=== PATIENT | female | born 1980 | race Caucasian/White ===

== ENCOUNTER 2019-04-13 06:53 | Observation (INO) ==
--- NOTE | 2019-04-08 09:09 | Anesthesiology Consultation ---
Date of Service April 08, 2019 Assessment & Plan Chart Review Chart Review: Acceptable Risk for Surgery and Patient NOT seen in Pre Admission Testing Consults Requested none History Surgery Operation Date: 04/13/19 09:20 Proposed Procedures p Bilateral Reduction Mammoplasty - Doris Baltazar MD Height/Weight Height: 5 ft 1.5 in Weight: 87.543 kg Allergies Allergy/AdvReac Type Severity Reaction Status Date / Time No Known Allergies Allergy Verified 04/02/19 08:32 Medications Home Medications Medication Instructions Recorded Confirmed Last Taken oxycodone-acetaminophen [Endocet] 1 tab PO Q4H PRN 04/02/19 04/02/19 Unknown Past Medical History Medical History No known health problems Past Surgical History Surgical History History of section x 2 Social History Smoking Status: Never smoker Do You Dip or Chew Tobacco: No Hx Alcohol Use: No Hx Substance Use: No substance use type: does not use
[~2019-04-13 06:53] MED LIST: ACETAMINOPHEN 1000 MG/100 ML IV IV ONE; CEFAZOLIN 2000MG 2,000 MG/15 ML SYR IV SCH; LR 15ML/HR IV SCH
[2019-04-13 07:39] LABS: Basophils # (auto) 0.01 K/uL (0-0.2); Basophils % (auto) 0.2 %; Eosinophils # (auto) 0.09 K/uL (0-0.5); Eosinophils % (auto) 1.7 %; Hematocrit (blood only) 41.8 % (37-47); Hemoglobin 14.3 g/dL (12.0-16.0); Immature Granulocytes # (auto) 0.01 K/uL (0.00-0.02); Immature Granulocytes % (auto) 0.2 %; Lymphocytes # (auto) 2.49 K/uL (1.2-3.4); Lymphocytes % (auto) 45.7 %; Mean Corpuscular Hemoglobin 30.6 pg (25-34); Mean Corpuscular Volume 89.3 fL (80-100); Mean Platelet Volume 11.5 fL (7.4-10.4); Monocytes # (auto) 0.53 K/uL (0.11-0.59); Monocytes % (auto) 9.7 %; Neutrophils # (auto) 2.32 K/uL (1.4-6.5); Neutrophils % (auto) 42.5 %; Platelet Count 190 K/uL (130-400); RDW Coefficient of Variation 12.5 % (11.5-14.5); RDW Standard Deviation 39.8 fL (36.4-46.3); Red Blood Count 4.68 M/uL (4.2-5.4); White Blood Count 5.45 K/uL (4.8-10.8)
[2019-04-13 07:45] LABS: Mean Corpuscular Hgb Conc 34.2 g/dL (32-36)
[2019-04-13 07:54] LABS: BUN Creatinine Ratio 22.3 (10-20); Calcium 8.8 mg/dl (8.5-10.1); Creatinine Clr Calc Pharmacy 94.9 ml/min; Est GFR (African American) 106.9; Est GFR (Non-African American) 92.2; Potassium 4.1 mmol/L (3.5-5.1)
[2019-04-13 07:55] LABS: Partial Thromboplastin Ratio 0.9; Partial Thromboplastin Time 25.6 Seconds (21.0-31.0); Prothrombin Time 10.5 Seconds (9.0-12.0)
[2019-04-13] MEDS ORDERED: ROCURONIUM BROMIDE 10 MG/ML 5 ML VIAL ONE (08:11)
[2019-04-13] MEDS ORDERED: MIDAZOLAM HCL 1 MG/ML 2ML VIAL ONE (08:11)
[2019-04-13] MEDS ORDERED: DEXAMETHASONE SOD INJ 4 MG/ML VIAL ONE (08:11)
[2019-04-13] MEDS ORDERED: ONDANSETRON INJ 2 MG/ML 2 ML VIAL ONE (08:11)
[2019-04-13] MEDS ORDERED: fentaNYL citrate 100 MCG/2 ML VIAL ONE (08:11)
[2019-04-13] MEDS ORDERED: LIDOCAINE HCL 2% 2 ML VIAL/AMP(20MG/ML) INFIL ONE (08:11)
[2019-04-13] MEDS ORDERED: PROPOFOL IV EMULSION 10 MG/ML 20 ML VIAL IV ONE (08:11)
[2019-04-13] MEDS ORDERED: ePHEDrine sulfate 50 MG/ML AMP IV PRN (08:46)
[2019-04-13] MEDS ORDERED: ATROPINE SULFATE 0.1 MG/ML 10ML SYR IV PRN (08:46)
[2019-04-13] MEDS ORDERED: METOCLOPRAMIDE HCL INJ 5 MG/ML 2 ML VIAL IV PRN (08:46)
[2019-04-13] MEDS ORDERED: PROMETHAZINE HCL 12.5 MG in SODIUM CHLORIDE 0.9% 50 ML IV PRN ×2 (08:46→14:14)
[2019-04-13] MEDS ORDERED: HYDROmorphone INJ 2 MG/ML SYR/VIAL IV PRN (08:46)
[2019-04-13] MEDS ORDERED: ONDANSETRON INJ 2 MG/ML 2 ML VIAL IV PRN ×3 (08:46→14:16)
[2019-04-13] MEDS ORDERED: LIDOCAINE/EPINEPHRINE 1% 20 ML VIAL ONE (09:06)
[2019-04-13] MEDS ORDERED: BUPIVACAINE 0.25% 30 ML VIAL ONE (09:06)
--- NOTE | 2019-04-13 09:08 | History & Physical Bridge Note ---
Date of Service April 13, 2019 History & Physical Bridge Note I have examined the patient, reviewed the History & Physical and in the interval since the performance of the History & Physical I have noted the following changes of clinical significance: no changes noted
[2019-04-13] MEDS ORDERED: KETAMINE HCL INJ 50 MG/ML 10 ML VIAL ONE (09:33)
[2019-04-13] MEDS ORDERED: HYDROmorphone INJ 2 MG/ML SYR/VIAL ONE (09:33)
[2019-04-13] MEDS ORDERED: GLYCOPYRROLATE 0.2 MG/ML VIAL ONE (12:07)
[2019-04-13] MEDS ORDERED: NEOSTIGMINE METHYLSULFATE 5 MG/5 ML SYR ONE (12:07)
--- NOTE | 2019-04-13 12:53 | Post Operative Brief Note ---
PG Immediate Post Op with CF Date of Surgery April 13, 2019 Pre & Post Diagnosis Operation Date: 04/13/19 09:20 Pre-Op Diagnosis: Symptomatic Bilateral Macromastia Post-Op Diagnosis: Symptomatic Bilateral Macromastia I identified the patient and participated in the time-out.: Yes Procedure Operation Date: 04/13/19 09:20 Actual Procedures p Bilateral Breast Reduction (Bilateral) - Doris Baltazar MD Surgeon Doris Baltazar MD Parts Counter Associate Niki Berrios PA-C Estimated Blood Loss 50 Findings Consistent with Post-Op Diagnosis Specimens Specimen Description: Fresh Specimen A:) Left Breast Tissue 710 grams Fresh Specimen B:) Right Breast Tissue 644 grams Drains Ricardo-Perkins Drain (x2)
--- NOTE | 2019-04-13 12:58 | Operative Report ---
PG Post Operative Report Pre & Post Diagnosis Operation Date: 04/13/19 09:20 Pre-Op Diagnosis: Symptomatic Bilateral Macromastia Post-Op Diagnosis: Symptomatic Bilateral Macromastia I identified the patient and participated in the time-out.: Yes Procedure Operation Date: 04/13/19 09:20 Actual Procedures p Bilateral Breast Reduction (Bilateral) - Doris Baltazar MD Surgeon Doris Blatazar MD Title Specialist Niki Berrios PA-C Estimated Blood Loss 50 Findings Consistent with Post-Op Diagnosis Specimens left breast 710 grams to pathology right breast 644 grams to pathology Drains JPx2 Anesthesia Type General Complications none Indications back, neck and shoulder pain due to macromastia Description of Procedure The risks, benefits, and alternatives of the procedure were explained to the patient who agreed and signed consent. She was identified and marked in the preoperative holding area. She desired to be a C or D cup if possible, understood insurance required weight of 628 grams and that her left breast was larger than the right. She was brought to the operating room where she was positioned supine and placed under general anesthesia without incident. Surgical site was prepped and draped sterilely. A time-out procedure was performed. I began with the left side. Markings were reassessed and an 8 cm pedicle was marked. 1% lidocaine with epinephrine was used to anesthetize the planned incisions. A 42 mm cookie cutter was used to circumscribe the nipple-areolar complex. The previously marked 8 cm pedicle was incised using a 15 blade scalpel and deepithelized. I began with the medial dissection of the pedicle using electrocautery. Cautery was used to incise through dermis and breast parenchyma down to the chest wall, taking care not to undermine the pedicle during dissection. A similar procedure was undertaken on the lateral aspect of the pedicle again taking care not to undermine. Lastly, the pedicle was dissected out superiorly using electrocautery and this was carried down to the chest wall as well. I then began with excision of the medial breast tissue followed by lateral aspect of the breast tissue and surrounding keyhole incision. A 15 blade scalpel was used to make the inframammary fold incision and electrocautery was used to deepen the incision through dermis and breast parenchyma. Dissection was then carried superiorly to the level of the superior incision. Superior incision was then incised using a 15 blade scalpel and again dissected using electrocautery. This was undertaken laterally and then around the keyhole portion of the incision. Care was taken to leave some fat on the lateral pectoralis fascia in order to protect the T4 intercostal nerve. Hemostasis was achieved with electrocautery. The specimen was passed off in its entirety for weighing. Additional resection was undertaken from the superior flap in order to facilitate closure of the breast and to provide the best shape. The total resection weight of the left breast was 710 grams. The wound was irrigated with saline and hemostasis was achieved with electrocautery. 0.25% Marcaine plain was used to anesthetize the incisions as well as the pectoralis fascia. A 15 Moroccan Edgar drain was brought out through a separate stab incision. The nipple-areolar complex was brought into the keyhole using 2-0 Vicryl deep dermal suture. The wound was closed first in a lateral to mid breast direction and then medial to mid breast direction using 2-0 Vicryl deep dermal sutures. Vertical limb was also approximated using 2-0 Vicryl deep dermals and the nipple-areolar complex was inset using 2-0 Vicryl deep dermal sutures. Next, the superficial dermal layer was closed using 2-0 PDO running Quill suture along the inframammary fold and 3-0 PDS interrupted dermal sutures along the vertical limb and nipple- areolar complex. Lastly 3-0 Monocryl running subcuticular suture was placed. A similar procedure was undertaken on the right side with maximal excision weight of 644 grams. Breasts were symmetric and nipple-areolar complexes were viable bilaterally following wound closure. Dermabond Prineo was applied along the inframammary fold and vertical limb and Dermabond was placed around the nipple-areolar complex. Dry dressings and a surgical bra were placed. The patient was awakened and transferred to recovery room in satisfactory condition. Niki Berrios PA-C was present and scrubbed throughout the procedure and was instrumental in providing retraction during dissection of the pedicle and assisting in wound closure. I attest to the content of the Intraoperative Record and any orders documented therein. Any exceptions are noted below.
[2019-04-13] MEDS: fentaNYL citrate 100 MCG/2 ML VIAL IV PRN ×4 (13:14→13:29)
--- NOTE | 2019-04-13 14:09 | Anesthesiology Progress Note ---
Date of Service April 13, 2019 Anesthesia Post Procedure Vital Signs Vital Signs: Temp Pulse Pulse Resp BP Pulse Ox 04/13/19 13:35 36.7 C 78 16 118/68 97 04/13/19 13:25 61 16 127/82 94 04/13/19 13:15 71 16 135/77 98 04/13/19 13:05 36.6 C 70 12 135/76 98 04/13/19 07:31 37.0 C 60 18 137/82 99 Pain Intensity Bilateral Breast: Pain Intensity: 4 Transfer of Care Handoff Completed per policy Notes Mental Status: alert / awake / arousable and participated in evaluation Patient Amnestic to Procedure: Yes Nausea / Vomiting: adequately controlled Pain: adequately controlled Airway Patency, RR, SpO2: stable & adequate BP & HR: stable & adequate Hydration State: stable & adequate Anesthetic Complications: no major complications apparent
[2019-04-13] MEDS ORDERED: DiphenhydrAMINE HCL 50 MG/ML VIAL IV PRN (14:14)
[2019-04-13] MEDS ORDERED: MoRPHine SULFATE 4 MG/ML 1 ML CARP\\VIAL IV PRN ×2 (14:14→14:23)
[2019-04-13] MEDS ORDERED: OXYCODONE/ACETAMINOPHEN 5mg/325mg TAB PO PRN ×2 (14:14)
[2019-04-13] MEDS ORDERED: ACETAMINOPHEN 325 MG TAB PO PRN (14:14)
[2019-04-13] MEDS ORDERED: MoRPHine SULFATE 2 MG/ML CARP IV PRN (14:14)
[2019-04-13] MEDS ORDERED: OXAZEPAM 10 MG CAPSULE PO PRN (14:14)
--- NOTE | 2019-04-13 14:18 | Surgery Progress Note ---
Date of Service April 13, 2019 Assessment & Plan (1) S/P bilateral breast reduction: Doing well post-op. Anticipate d/c in AM. Subjective Patient resting comfortable. VSS. Offers no concerns Physical Exam Physical Exam: nipples viable Results & Data Vital Signs (Past 12 Hours) Vital Signs Temp Pulse Pulse Resp BP Pulse Ox 04/13/19 13:35 36.7 C 78 16 118/68 97 04/13/19 13:25 61 16 127/82 94 04/13/19 13:15 71 16 135/77 98 04/13/19 13:05 36.6 C 70 12 135/76 98 04/13/19 07:31 37.0 C 60 18 137/82 99 PG Care Time/CCT Total # of Minutes Spent Total Time Spent with Patient: Total time spent is greater than 50% in coordination of care (as documented) at patient's floor/unit and/or counseling patient: Coding Level of Care Code None Diagnoses S/P bilateral breast reduction Z98.890
[2019-04-13] MEDS: D5W AND 1/2NSS + 20MEQ KCL 20 MEQ/1,000 ML BAG IV SCH (14:48)
[2019-04-13] MEDS: CEFAZOLIN 2000MG 2,000 MG/15 ML SYR IV SCH (17:37)
[2019-04-14] MEDS: CEFAZOLIN 2000MG 2,000 MG/15 ML SYR IV SCH (02:10)
[2019-04-14] MEDS: D5W AND 1/2NSS + 20MEQ KCL 20 MEQ/1,000 ML BAG IV SCH (03:57)
--- NOTE | 2019-04-14 08:27 | Anesthesiology Progress Note ---
Date of Service April 14, 2019 Anesthesia Post Procedure Vital Signs Vital Signs: Temp Pulse Pulse Resp BP Pulse Ox 04/14/19 08:00 36.7 C 58 L 14 123/75 98 04/14/19 04:27 36.9 C 56 L 15 142/88 H 98 04/13/19 23:27 36.8 C 52 L 14 107/67 97 04/13/19 20:32 36.7 C 77 16 117/70 96 04/13/19 19:40 36.5 C 62 16 113/73 96 04/13/19 18:56 36.5 C 61 18 119/72 96 04/13/19 16:52 36.4 C L 70 16 122/71 97 04/13/19 14:53 62 16 113/64 98 04/13/19 14:31 77 16 123/68 98 04/13/19 13:55 36.5 C 72 16 135/71 97 04/13/19 13:35 36.7 C 78 16 118/68 97 04/13/19 13:25 61 16 127/82 94 04/13/19 13:15 71 16 135/77 98 04/13/19 13:05 36.6 C 70 12 135/76 98 Pain Intensity Bilateral Breast: Pain Intensity: 4 Notes Mental Status: alert / awake / arousable and participated in evaluation Patient Amnestic to Procedure: Yes Nausea / Vomiting: see Notes below Pain: adequately controlled Airway Patency, RR, SpO2: stable & adequate BP & HR: stable & adequate Hydration State: stable & adequate Anesthetic Complications: no major complications apparent and Pt Satisfied with anesthetic care
[2019-04-14] MEDS ORDERED: MULTIVITAMIN TAB PO SCH (09:00)
--- NOTE | 2019-04-14 09:09 | Surgery Progress Note ---
Date of Service April 14, 2019 Assessment & Plan (1) S/P bilateral breast reduction: POD #1 s/p Bilateral Breast Reduction Mohini is doing very well this AM. Pain is well-controlled with PO pain medication. She denies nausea. She is tolerating a regular diet and is voiding without issue. AISHA drains removed today at bedside. Patient ok for discharge to home with follow-up in office tomorrow morning. Discharge instructions reviewed with patient and all questions answered. Subjective Mohini is resting comfortably in bed as I entered the room. She reports that she is feeling well. She denies any nausea. She denies any concerns or complaints. She is very happy with the results of her surgery. Physical Exam Physical Exam: On physical exam- surgical bra and surgical dressings in place. They are clean, dry, intact. Nipples are viable. AISHA drains with minimal serosang drainage. AISHA drains x 2 removed today at beside without issue. Opt ifoam dressings placed and surgical dressings reinforced. Surgical bra reattached. Results & Data Vital Signs (Past 12 Hours) Vital Signs Temp Pulse Resp BP Pulse Ox 04/14/19 08:00 36.7 C 58 L 14 123/75 98 04/14/19 04:27 36.9 C 56 L 15 142/88 H 98 04/13/19 23:27 36.8 C 52 L 14 107/67 97 PG Care Time/CCT Total # of Minutes Spent Total Time Spent with Patient: Total time spent is greater than 50% in coordination of care (as documented) at patient's floor/unit and/or counseling patient: Coding Level of Care Code 16407 Subseq Obs Care Lvl 1 Diagnoses S/P bilateral breast reduction Z98.890
--- NOTE | 2019-04-14 09:53 | Discharge Summary ---
Date of Service April 14, 2019 Admission HPI Per Admitting Provider Please see admission H & P. Admission Exam Per Admitting Provider Please see admission H & P. Principal Diagnosis Symptomatic Bilateral Macromastia Discharge Exam On physical exam- surgical bra and surgical dressings in place. They are clean, dry, intact. Nipples are viable. AISHA drains with minimal serosang drainage. AISHA drains x 2 removed today at beside without issue. Optifoam dressings placed and surgical dressings reinforced. Surgical bra reattached. Discharge Data Allergies Allergy/AdvReac Type Severity Reaction Status Date / Time No Known Allergies Allergy Verified 04/13/19 07:30 Procedures Performed Operation Date: 04/13/19 09:20 Actual Procedures p Bilateral Breast Reduction (Bilateral) - Doris Baltazar MD Hospital Course (1) S/P bilateral breast reduction: Mohini is a 38-year-old female with bilateral symptomatic macromastia. She was taken to the OR and underwent bilateral breast reduction. There were no intraoperative complications. She was taken to recovery and transferred to med/surg for observation. On POD #1, she was feeling a bit sore, but was overall doing well. She was tolerating a regular diet, voiding on her own, and ambulating without issue. On exam, her vitals were stable. Her incisions were clean, dry, and intact. Nipples viable. Her drains were removed without issue at bedside and optifoam dressings were placed. She was discharged home with instructions to follow-up in the office in 1 day. All questions answered. Total Time Total Time Spent Total Time Spent (In Minutes): 5 Discharge Plan Discharge Items Patient Disposition: Home - Self-Care Reason For Visit: Symptomatic Macromastia Discharge Diagnosis: s/p bilateral breast reduction Activity: As commented below Non-emergency contact: Surgeon Call non-emergency contact if: you have any medication questions, your pain is not controlled, you have a fever, your wound has increased redness and your wound has increased drainage Follow-up/Referrals: Juice Vasquez PA-C [Primary Care Provider] - Diet: Regular Addtl Attending Provider Instructions: ACTIVITY RECOMMENDATIONS: __Normal activities _x_No bending, lifting or straining __No driving __Driving allowed when you are off pain medications _x_Walking permitted __You should have help at home for ___ days DRESSINGS: __No dressings required _x_Keep dressings dry/in place until first office visit __Remove dressings ___ and leave dressings off __Apply ice ___ days __Remove dressings and reapply garment __Apply antibiotic ointment (Bacitracin, Neosporin, etc) to wounds 3-4 times/day for 10 days BATHING: _x_Keep dressings dry _x_Sponge bathing permitted __Showering permitted _x_No swimming, hot tubs or soaking in a tub MEDICATIONS: Resume previous medications unless instructed otherwise by your surgeon. _x_Do not use aspirin, Motrin, Advil or Ibuprofen as these may promote bleeding. Please use Tylenol. _x_Prescription(s) provided: pain medication was prescribed at your pre-op visit OTHER INSTRUCTIONS: __Record drain output 2-3 times per day SPECIAL CARE INSTRUCTIONS: * It is normal to have a mild fever after surgery. If your temperature is higher than 101.5 degrees F, please call the office at [phone]. * Constipation is a typical side effect of pain medication. An [id number] stool softener will help relieve this. * Leaking around surgical drains may occur and should not cause concern. Sometimes these drains become clogged. If this happens, remove the bulb and milk the clot out of the tube, then replace the bulb. * Drainage from wounds after liposuction is normal and should be expected. Garments will become soiled. You should protect furniture and bedding. This drainage should mostly subside within 2-3 days. Leave garments in place unless instructed to remove them. * If you have unusual drainage from a wound or are concerned you have an infection or have any questions or concerns, please call the office at [phone]. FOLLOW UP VISIT: If not already scheduled, please call the office, , when you return home after surgery to schedule an appointment to be seen in _1__ days. Pending Studies at Discharge: Yes Studies:: pathology Stand-Alone Forms: My [facility] [employer], Smoking Cessation Medications and DC Order Prescriptions: Continued oxycodone-acetaminophen [Endocet] 5-325 mg tablet 1 tab PO Q4H PRN (Reason: postop pain) RF: 0 Discharge Orders: Discharge Order (Routine); Ordered 04/14/19 Ordered By: Marya Guillen Admission Data Admit Date/Time: 04/13/19 13:15 Attending Provider: Doris Baltazar Admit Provider: Doris Baltazar Primary Care Provider: Juice Vasquez Other Interventions: Discharge Summary Assessment (RN) Last Done: 04/14/19 09:10 DC Date/Time DO NOT enter until pt leaves facility: 04/14/19 09:22 Coding Level of Care Code 24555 OBS Care - Discharge Diagnoses S/P bilateral breast reduction Z98.890
== END 2019-04-14 09:22 | disposition home or self-care (01) ==
LOC: 3W 06:53 → ASU 06:53
DX: N62 Hypertrophy of breast

== ENCOUNTER 2020-08-17 07:37 | Observation (INO) ==
--- NOTE | 2020-07-19 09:32 | Anesthesiology Consultation ---
Date of Service July 19, 2020 Assessment & Plan (1) Encounter for pre-operative examination: Chart Review Chart Review: Acceptable Risk for Surgery (pending preop Covid testing results ) and Patient NOT seen in Pre Admission Testing - Check test AM DOS Per nursing assessment 07/11/2020, patient denies any recent travel. No known Covid infection in the past 90 days. No known Covid positive contacts or Covid related symptoms. Covid test 07/19/20= results pending Bilateral reduction mammoplasty 04/15/2019 = done under [facility] with grade 1 view (cords clear) with MAC #3. ETT #7.0. Atraumatic intubation x1. No anesthesia issues noted per anesthesia record. History Surgery Operation Date: 07/25/20 07:30 Proposed Procedures p Panniculectomy - Doris Baltazar MD Height/Weight Height: 5 ft 1.5 in Weight: 90.718 kg Allergies Allergy/AdvReac Type Severity Reaction Status Date / Time No Known Allergies Allergy Verified 07/11/20 10:18 Medications Home Medications Medication Instructions Recorded Confirmed Last Taken oxycodone-acetaminophen 5 mg-325 1 tab PO Q4H PRN 3 Days #18 tab 07/08/20 07/08/20 Unknown mg tablet Past Medical History Medical History Scoliosis "MILD" Past Family History Family History Other No family history of adverse response to anesthesia Past Surgical History Surgical History History of section x 2 History of colonoscopy S/P bilateral breast reduction (04/14/19) Social History Smoking Status: Never smoker Hx Alcohol Use: Yes Alcohol type: wine alcohol intake frequency: holidays/special occasions only Hx Substance Use: No substance use type: does not use Lab Results Anesthesia Preop Results Results Anesthesia Widget: WBC 6.60 K/uL (4.8-10.8) 07/19/20 Hgb 13.5 g/dL (12.0-16.0) 07/19/20 Hct 39.9 % (37-47) 07/19/20 Plt 181 K/uL (130-400) 07/19/20 Na 139 mmol/L (136-145) 07/19/20 K 4.1 mmol/L (3.5-5.1) 07/19/20 Cl 107 mmol/L (98-107) 07/19/20 CO2 28 mmol/L (21-32) 07/19/20 BUN 16 mg/dl (7-18) 07/19/20 Creat 0.66 mg/dl (0.6-1.2) 07/19/20 Glucose Level 85 mg/dl (70-99) 07/19/20 PT 9.8 Seconds (9.0-12.0) 07/19/20 PTT 25.4 Seconds (21.0-31.0) 07/19/20 INR 1.0 (0.9-1.1) 07/19/20
[~2020-08-17 07:37] MED LIST changes: -CEFAZOLIN 2000MG 2,000 MG/15 ML SYR IV SCH; +FAMOTIDINE/PF 20 MG/2 ML VIAL IV ONE; +ceFAZolin 2000MG 2,000 MG/15 ML SYR IV SCH
[2020-08-17] MEDS ORDERED: MIDAZOLAM HCL 1 MG/ML 2ML VIAL ONE (08:34)
[2020-08-17] MEDS ORDERED: fentaNYL citrate 100 MCG/2 ML VIAL ONE (08:34)
[2020-08-17] MEDS ORDERED: METOCLOPRAMIDE HCL INJ 5 MG/ML 2 ML VIAL ONE (08:38)
[2020-08-17] MEDS ORDERED: ROCURONIUM BROMIDE 10 MG/ML 5 ML VIAL IV ONE (08:38)
[2020-08-17] MEDS ORDERED: ONDANSETRON INJ 2 MG/ML 2 ML VIAL ONE (08:41)
[2020-08-17] MEDS ORDERED: LIDOCAINE 2% 2 ML VIAL/AMP(20MG/ML) INFIL ONE (08:41)
[2020-08-17] MEDS ORDERED: DEXAMETHASONE SOD INJ 4 MG/ML VIAL ONE (08:41)
[2020-08-17] MEDS ORDERED: PROPOFOL IV EMULSION 10 MG/ML 20 ML VIAL IV ONE (08:41)
[2020-08-17] MEDS ORDERED: ATROPINE SULFATE 0.1 MG/ML 10ML SYR IV PRN (09:43)
[2020-08-17] MEDS ORDERED: ONDANSETRON INJ 2 MG/ML 2 ML VIAL IV PRN ×2 (09:43→13:15)
[2020-08-17] MEDS ORDERED: fentaNYL citrate 100 MCG/2 ML VIAL IV PRN (09:43)
[2020-08-17] MEDS ORDERED: ePHEDrine sulfate 50 MG/ML AMP IV PRN (09:43)
--- NOTE | 2020-08-17 09:43 | History & Physical Report ---
Date of Service August 17, 2020 Assessment & Plan (1) Abdominal pannus: For OR today. Site marked, questions answered. Consent obtained at prior office visit. History of Present Illness Primary Care Provider: Juice Vasquez PA-C Mohini presents today for panniculectomy. She was scheduled previously but was canceled due to positive covid test despite having had vaccine. No complaints today. History from prior visits is as noted below: "Mohini is here today to discuss surgical options to treat excess skin of the lower abdomen. She is well known to our practice and is nearly 9 months status post bilateral breast reduction. She states that she is unhappy with both the look and feel of the excess skin of her lower abdomen. She states that the bulge of her lower abdomen became worse after her 2 c-sections. 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 She reports that the area in the fold of the lower ab dominal skin becomes moist. She will apply creams and powders to help with the moistness, but they do not help. She finds intimacy to be difficult as well as personal hygiene during her menses due to the excess skin of her lower abdomen. She does have a tattoo on her lower abdomen, is not concerned if it is removed during surgery." Allergies Allergy/AdvReac Type Severity Reaction Status Date / Time No Known Allergies Allergy Verified 08/17/20 07:54 Home Medications Medication Instructions Recorded Confirmed Type oxycodone-acetaminophen 5 mg-325 1 tab PO Q4H PRN 3 Days #18 tab 07/08/20 08/17/20 Rx mg tablet Past Med/Surg History Medical History COVID-19 virus detected + 07/19 asymptomatic Scoliosis "MILD" Surgical History History of section x 2 History of colonoscopy S/P bilateral breast reduction (04/14/19) Family History Other No family history of adverse response to anesthesia Social History Smoking Status: Never smoker Second Hand Exposure: No; Hx Alcohol Use: No Hx Substance Use: No Preferred Language: Pashto Communication Ability: Effective Staff Nuclear Medicine Technologist Required: No Beliefs That Will Affect Care: None Current Living Situation: Spouse Feels Safe at Home: Yes Safety Concerns: Feels Safe At This Time Sunscreen Use: Yes Assistive Devices: None Review of Systems Review of Systems: Review of System Constitutional: Constitutional: no fever and no chills Eyes: Eyes: no discharge and no eye pain Ear, Nose, Mouth, Throat: Ear, Nose, Mouth, Throat: no dizziness, no nasal congestion and no post nasal drip Respiratory: Respiratory: no cough, no chest congestion and no dyspnea Cardiovascular: Cardiovascular: no chest pain, no chest pain at rest, no radiating jaw, neck or arm pain and no dyspnea Gastrointestinal: Gastrointestinal: no abdominal pain, no nausea and no vomiting Integumentary: Integumentary: as per Subjective / HPI Hematologic / Lymphatic: Hematologic / Lymphatic: no easy bleeding and no easy bruising Physical Exam Physical Exam: Constitutional: WD/WN, vitals as above no acute distress Eyes: PERRL, conjunctivae normal, anicteric sclerae ENMT: external ear and nose normal, oropharynx normal Neck: normal visual inspection Respiratory: normal respiratory effort, lungs clear to auscultation no respiratory distress and no labored breathing Cardiovascular: RRR, no murmur, no edema Gastrointestinal (Abdomen): normal bowel sounds, soft, nontender, no hepatosplenomegaly Obese abdomen, well-healed Pfannenstiel incisions, overhanging abdominal pannus obscuring genitalia and resting on thighs. Skin: no rashes, warm and dry Psychiatric: A+Ox3, euthymic affect Results & Data Results & Data ([facility]) Vital Signs (Past 12 Hours) Vital Signs Temp Pulse Resp BP Pulse Ox 08/17/20 07:55 98.2 F 68 20 125/80 97
[2020-08-17] MEDS ORDERED: BUPIVACAINE 0.25% 30 ML VIAL ONE (10:08)
[2020-08-17] MEDS ORDERED: LIDOCAINE/EPINEPHRINE 1% 20 ML VIAL ONE (10:08)
[2020-08-17] MEDS ORDERED: THROMBIN FOR SOLN 20000 UNIT KIT ONE (10:09)
[2020-08-17] MEDS ORDERED: HYDROmorphone INJ 2 MG/ML SYR/VIAL ONE (11:03)
--- NOTE | 2020-08-17 11:53 | Operative Report ---
PG Post Operative Report Pre & Post Diagnosis Operation Date: 08/17/20 09:50 Pre-Op Diagnosis: Abdominal Pannus Post-Op Diagnosis: Abdominal Pannus I identified the patient and participated in the time-out.: Yes Procedure Operation Date: 08/17/20 09:50 Actual Procedures p Panniculectomy(Not Applicable) - Doris Baltazar MD s Incisional Hernia Repair(Not Applicable) - Jose Lawson DO, MARTINA Surgeon Jose Lawson DO, MARTINA Civil Rights Attorney Niki Berrios Estimated Blood Loss 0 Findings Consistent with Post-Op Diagnosis 1 cm fascial defect closed primarily with interrupted 0 Nurolon's. Additional 5 mm defect closed with [id number] 0 Nurolon suture. Specimens None Anesthesia Type General Complications none Disposition Accompanied Patient To Recovery: No Disposition: Recovery Room Indications Called into Dr. Baltazar's room to assist during panniculectomy. They discovered 2 small fascial defects and were requesting closure. Description of Procedure Called into OR [address] Baltazar with plastic surgery. She was doing a panniculectomy and noted 2 small fascial defects. I scrubbed the case and on my exam this involve the anterior fascia and did not appear to be full-thickness. The area was already cleared of investing tissue and the fascia was exposed. There was a midline defect of approximately 5 mm, and a left lower quadrant defect of approximately 1.5 cm. The small 5 mm midline defect was closed with a [id number] 0 Nurolon suture. The left lower quadrant 1.5 cm defect was closed with interrupted simple 0 Nurolon sutures. The abdominal wall was palpated and there were no additional fascial defects present. The case was then turned back over to Dr. Baltazar she proceeded with her panniculectomy. Please see her dictation for further details. I attest to the content of the Intraoperative Record and any orders documented therein. Any exceptions are noted below.
[2020-08-17] MEDS ORDERED: GLYCOPYRROLATE 0.2 MG/ML VIAL ONE ×2 (13:01)
[2020-08-17] MEDS ORDERED: NEOSTIGMINE METHYLSULFATE 1 MG/ML 10ML VIAL ONE (13:01)
--- NOTE | 2020-08-17 13:06 | Post Operative Brief Note ---
PG Immediate Post Op with CF Date of Surgery August 17, 2020 Pre & Post Diagnosis Operation Date: 08/17/20 09:50 Pre-Op Diagnosis: Abdominal Pannus Post-Op Diagnosis: Abdominal Pannus, Incisional Hernia I identified the patient and participated in the time-out.: Yes Procedure Operation Date: 08/17/20 09:50 Actual Procedures p Panniculectomy(Not Applicable) - Doris Baltazar MD s Incisional Hernia Repair(Not Applicable) - Jose Lawson DO, FACS Surgeon Doris Baltazar MD Muskrat Trapper Niki Berrios Estimated Blood Loss 25 Findings See Below scar endometriosis, incisional hernia Specimens Specimen Description: Frozen Specimen #1: Right Abdominal Subcutaneous Nodule -History x2 -sent to lab at 1118. Fresh Specimen: A.) Abdominal Pannus Drains Wilson Catheter (16french 10ml balloon inserted by Elena HARTMANN without difficulty. Urine output monitored throughout entire case by anesthesia staff) and Ricardo-Perkins Drain (x2) Anesthesia Type General Disposition Disposition: Recovery Room
[2020-08-17] MEDS ORDERED: LORazepam 0.5 MG TAB PO PRN (13:15)
[2020-08-17] MEDS ORDERED: PROMETHAZINE HCL 12.5 MG in SODIUM CHLORIDE 0.9% 50 ML IV PRN (13:15)
[2020-08-17] MEDS ORDERED: MoRPHine SULFATE 2 MG/ML CARP IV PRN (13:15)
[2020-08-17] MEDS ORDERED: ACETAMINOPHEN 325 MG TAB PO PRN (13:15)
[2020-08-17] MEDS ORDERED: diphenhydrAMINE Capsule 25 MG CAP PO PRN (13:15)
[2020-08-17] MEDS ORDERED: diphenhydrAMINE 50 MG/ML VIAL IV PRN (13:15)
[2020-08-17] MEDS ORDERED: MoRPHine SULFATE 4 MG/ML 1 ML CARP\\VIAL IV PRN (13:15)
[2020-08-17] MEDS ORDERED: oxyCODONE/ACETAMINOPHEN 5mg/325mg TAB PO PRN ×3 (13:15→14:59)
--- NOTE | 2020-08-17 13:50 | Operative Report ---
PG Post Operative Report Pre & Post Diagnosis Operation Date: 08/17/20 09:50 Pre-Op Diagnosis: Abdominal Pannus Post-Op Diagnosis: Abdominal Pannus, Incisional Hernia I identified the patient and participated in the time-out.: Yes Procedure Operation Date: 08/17/20 09:50 Actual Procedures p Panniculectomy(Not Applicable) - Doris Baltazar MD s Incisional Hernia Repair(Not Applicable) - Jose Lawson DO, FACS Surgeon Dorsi Baltazar MD Top Lift Cutter Niki Berrios Estimated Blood Loss 25 Findings See Below Specimens abdominal pannus subcutaneous nodule Drains JPx2 Anesthesia Type General Complications none Disposition Accompanied Patient To Recovery: No Disposition: Recovery Room Indications overhanging abdominal pannus, intertrigo Description of Procedure Risks, benefits, and alternatives of the procedure were explained to the patient who agreed and signed consent. She was identified and marked in the preoperative holding area. She was brought to the operating room where she was positioned supine and placed under general anesthesia without incident. Wilson catheter was placed. Surgical site was prepped and draped sterilely. A time-out procedure was performed. I reassessed my markings which included a lower horizontal abdominal incision with the midportion 6.5 cm above the vulvar commissure just inferior to her Pfannenstiel incision. Incision was marked bilaterally to the ASIS. I began by injecting 1% lidocaine with epinephrine along the planned incision. The lower abdominal incision was made using a 15-blade scalpel to incise epidermis and superficial dermis followed by electrocautery to incise deep dermis, subcutaneous fat, Josie's fascia down to the abdominal wall. Care was taken to bevel superiorly in order to avoid encountering the inguinal region. Electrocautery was used to elevate the anterior abdominal skin flap ligating the perforating vessels with electrocautery. Dissection was carried up to about 4 cm below the umbilicus in the midline. Given the cephalad location of the umbilicus, lack of skin excess of the superior abdomen and thickness of the subcutaneous tissue as well as the localized adiposity of the pannus in the infraumbilical region, I did not circumscribe the umbilicus. At the rightmost aspect of the fascial incision from her caesarean, a 2 cm firm nodule was noted. A portion was sent for pathology and noted to be scar endometriosis. The remainder of the nodule was excised from the fascia. Additionally, an incisional hernia was identified at the left most aspect of her scar. Dr. Lawson was asked to repair the hernia, which will be separately dictated. A vertical midline incision was then made from the incision and divided in the midline using electrocautery and the flap was advanced. At this point, the bed was flexed and the mid portion of the superior skin flap was inset above the mons pubis using 2-0 Vicryl suture. Skin flaps were marked for excision. A 15-blade scalpel was used to make these incisions and the incision was deepened through dermis, subcutaneous fat, Josie's fat using electrocautery. Subscarpal fat was resected directly. A 15 Filipino Edgar drains were placed in the wound bed and brought out through a separate stab incision in the mons pubis. After assuring hemostasis with cautery, thrombin spray was applied. The drains were sutured into place using 3-0 nylon. This was performed using a 15- blade scalpel. Wound closure was then begun lateral to medial using 2-0 Vicryl Josie's fascia sutures, 2-0 Vicryl deep dermal sutures, 2-0 PDO running superficial Quill suture, 3-0 Monocryl running subcuticular suture. The incision was dressed using Dermabond Prineo followed by dry dressings and an abdominal binder. Prior to closure, a total of 10 mL of 0.25% Marcaine plain were injected into the fascia as well as along the incisions. The procedure was tolerated well. The patient was awakened and transferred to recovery in satisfactory condition. Niki Berrios was present and scrubbed throughout the entire procedure and was instrumental in providing retraction of the pannus and assisting in simultaneous wound closure. I attest to the content of the Intraoperative Record and any orders documented therein. Any exceptions are noted below.
[2020-08-17] MEDS: D5W AND 1/2NSS 1,000 ML IV SCH (15:49)
--- NOTE | 2020-08-17 15:52 | Surgery Progress Note ---
Date of Service August 17, 2020 Assessment & Plan (1) S/P panniculectomy: Admission and Anticipated Discharge Date Admission Date: August 17, 2020 S/P abdominal panniculectomy intra-op findings discussed post-op instructions reviewed anticipate d/c in AM Subjective Patient resting in bed, offers no concerns. VSS Physical Exam Physical Exam: drains with scant output. holding suction. abd binder in place. no drainage noted on dressings. no concern for active bleeding Results & Data ([facility]) Vital Signs (Past 12 Hours) Vital Signs Temp Pulse Pulse Resp BP Pulse Ox 08/17/20 15:47 36.3 C L 88 16 132/78 97 08/17/20 14:40 62 14 129/73 100 08/17/20 14:30 71 14 129/73 100 08/17/20 14:20 36.3 C L 64 14 147/86 H 100 08/17/20 14:10 70 14 142/74 H 92 08/17/20 14:00 63 12 131/73 92 08/17/20 13:50 82 18 147/83 H 92 08/17/20 13:41 75 16 112/67 92 08/17/20 13:40 72 16 113/65 92 08/17/20 13:23 36.3 C L 80 16 124/70 92 08/17/20 07:55 36.8 C 68 20 125/80 97 PG Care Time/CCT Total # of Minutes Spent Total Time Spent with Patient: Total time spent is greater than 50% in coordination of care (as documented) at patient's floor/unit and/or counseling patient: Coding Level of Care Code None Diagnoses S/P panniculectomy Z98.890
--- NOTE | 2020-08-17 15:55 | Anesthesiology Progress Note ---
Date of Service August 17, 2020 Anesthesia Post Procedure Vital Signs Vital Signs: Temp Pulse Pulse Resp BP Pulse Ox 08/17/20 15:47 36.3 C L 88 16 132/78 97 08/17/20 14:40 62 14 129/73 100 08/17/20 14:30 71 14 129/73 100 08/17/20 14:20 36.3 C L 64 14 147/86 H 100 08/17/20 14:10 70 14 142/74 H 92 08/17/20 14:00 63 12 131/73 92 08/17/20 13:50 82 18 147/83 H 92 08/17/20 13:41 75 16 112/67 92 08/17/20 13:40 72 16 113/65 92 08/17/20 13:23 36.3 C L 80 16 124/70 92 08/17/20 07:55 36.8 C 68 20 125/80 97 Transfer of Care Handoff Completed per policy Notes Mental Status: alert / awake / arousable Patient Amnestic to Procedure: Yes Nausea / Vomiting: adequately controlled Pain: adequately controlled Airway Patency, RR, SpO2: stable & adequate BP & HR: stable & adequate Hydration State: stable & adequate Anesthetic Complications: no major complications apparent
[2020-08-17] MEDS: ceFAZolin 2000MG 2,000 MG/15 ML SYR IV SCH (18:07)
[2020-08-18] MEDS: ceFAZolin 2000MG 2,000 MG/15 ML SYR IV SCH (01:25)
[2020-08-18] MEDS: D5W AND 1/2NSS 1,000 ML IV SCH (05:04)
--- NOTE | 2020-08-18 08:14 | Surgery Progress Note ---
Date of Service August 18, 2020 Assessment & Plan (1) S/P panniculectomy: Admission and Anticipated Discharge Date Admission Date: August 17, 2020 Patient is doing well. D/C home today, office follow-up tomorrow Supervising Physician Co-Signing Physician Notes I personally saw and examined this patient and agree with the assessment and plan. Subjective Patient resting comfortably. VSS. Pain well controlled. Wilson was removed this AM. She is ambulating and tolerating a regular diet. Physical Exam Constitutional: WD/WN, vitals as above Skin: + incision (CDI, drains with scant serosang output) Results & Data ([facility]) Vital Signs (Past 12 Hours) Vital Signs Temp Pulse Resp BP Pulse Ox 08/18/20 06:59 37.1 C 68 18 111/71 97 08/18/20 03:19 36.8 C 76 18 111/72 98 08/17/20 23:32 36.9 C 86 16 112/69 95 PG Care Time/CCT Total # of Minutes Spent Total Time Spent with Patient: Total time spent is greater than 50% in coordination of care (as documented) at patient's floor/unit and/or counseling patient: Coding Level of Care Code None Diagnoses S/P panniculectomy Z98.890
[2020-08-18] MEDS ORDERED: MULTIVITAMIN TAB PO SCH (09:00)
--- NOTE | 2020-08-19 09:59 | Discharge Summary ---
Date of Service August 19, 2020 Admission HPI Per Admitting Provider Mohini presents today for panniculectomy. She was scheduled previously but was canceled due to positive covid test despite having had vaccine. No complaints today. History from prior visits is as noted below: "Mohini is here today to discuss surgical options to treat excess skin of the lower abdomen. She is well known to our practice and is nearly 9 months status post bilateral breast reduction. She states that she is unhappy with both the look and feel of the excess skin of her lower abdomen. She states that the bulge of her lower abdomen became worse after her 2 c-sections. 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 She reports that the area in the fold of the lower abdominal skin becomes moist. She will apply creams and powders to help with the moistness, but they do not help. She finds intimacy to be difficult as well as personal hygiene during her menses due to the excess skin of her lower abdomen. She does have a tattoo on her lower abdomen, is not concerned if it is removed during surgery." Admission Exam Per Admitting Provider see admission H&P Principal Diagnosis s/p panniculectomy Discharge Exam VSS drains with appropriate output. abd binder in place with no saturation on dressings. incision CDI Discharge Data Allergies Allergy/AdvReac Type Severity Reaction Status Date / Time No Known Allergies Allergy Verified 08/17/ 07:54 Procedures Performed Operation Date: 08/17/20 09:50 Actual Procedures p Panniculectomy(Not Applicable) - Doris Baltazar MD s Incisional Hernia Repair(Not Applicable) - Jose Lawson DO, FACS Hospital Course (1) S/P panniculectomy: Patient presented to [facility] with history of abdominal pannus. She was taken to the OR and underwent panniculectomy. There were no intraoperative complications. She was taken to recovery and transferred to med/surg for observation. On POD#1, she was feeling well. She was tolerating a regular diet and ambulating. She was able to void after catheter was removed. On exam, her vitals were stable. Her incisions were CDI. Her drains had appropriate output. She was discharged home with instructions to follow-up in the office in one day. Total Time Total Time Spent Total Time Spent (In Minutes): 20 Total Time Includes: Examination of the Patient, Discharge Planning, Medication Reconciliation and Communication With Other Providers Discharge Plan Discharge Items Patient Disposition: Home - Self-Care Reason For Visit: Abdominal Pauns Discharge Diagnosis: s/p panniculectomy Activity: As commented below Non-emergency contact: Surgeon Call non-emergency contact if: you have any medication questions, your pain is n ot controlled, you have a fever, your wound has increased redness and your wound has increased drainage Follow-up/Referrals: Doris Baltazar MD [Physician] - 08/19/20 9:00 am Jose Lawson DO, FACS [Physician] - 09/06/20 11:45 am Juice Vasquez PA-C [Primary Care Provider] - Diet: Regular Addtl Attending Provider Instructions: ACTIVITY RECOMMENDATIONS: __Normal activities _x_No bending, lifting or straining __No driving __Driving allowed when you are off pain medications _x_Walking permitted __You should have help at home for ___ days DRESSINGS: __No dressings required _x_Keep dressings dry/in place until first office visit __Remove dressings ___ and leave dressings off __Apply ice ___ days __Remove dressings and reapply garment __Apply antibiotic ointment (Bacitracin, Neosporin, etc) to wounds 3-4 times/day for 10 days BATHING: _x_Keep dressings dry _x_Sponge bathing permitted __Showering permitted _x_No swimming, hot tubs or soaking in a tub MEDICATIONS: Resume previous medications unless instructed otherwise by your surgeon. _x_Do not use aspirin, Motrin, Advil or Ibuprofen as these may promote bleeding. Please use Tylenol. _x_Prescription(s) provided: pain medication was provided at your last office visit OTHER INSTRUCTIONS: _x_Record drain output 2-3 times per day SPECIAL CARE INSTRUCTIONS: * It is normal to have a mild fever after surgery. If your temperature is hi gher than 101.5 degrees F, please call the office at [phone]. * Constipation is a typical side effect of pain medication. An qssr-rhm-nuahrhq stool softener will help relieve this. * Leaking around surgical drains may occur and should not cause concern. Sometimes these drains become clogged. If this happens, remove the bulb and milk the clot out of the tube, then replace the bulb. * Drainage from wounds after liposuction is normal and should be expected. Garments will become soiled. You should protect furniture and bedding. This drainage should mostly subside within 2-3 days. Leave garments in place unless instructed to remove them. * If you have unusual drainage from a wound or are concerned you have an infection or have any questions or concerns, please call the office at [phone]. FOLLOW UP VISIT: If not already scheduled, please call the office, , when you return home after surgery to schedule an appointment to be seen in _1__ days. Pending Studies at Discharge: Yes Studies:: pathology Stand-Alone Forms: My [facility] [employer], Smoking Cessation Medications and DC Order Prescriptions: Continued oxycodone-acetaminophen [Percocet] 5-325 mg tablet 1 tab PO Q4H PRN (Reason: pain) 3 Days Qty: 18 RF: 0 Discharge Orders: Discharge Order (Routine); Ordered 08/18/20 Ordered By: Niki Barney/Other Patient Handouts: Discharge Instructions Caring for ... Admission Data Admit Date/Time: 08/17/20 13:20 Attending Provider: Doris Baltazar Admit Provider: Doris Baltazar Primary Care Provider: Juice Vasquez Other Interventions: Discharge Summary Assessment (RN) Last Done: 08/18/20 08:22 Coding Level of Care Code 38255 OBS Care - Discharge Diagnoses S/P panniculectomy Z98.890
== END 2020-08-18 10:55 | disposition home or self-care (01) ==
LOC: 3N 07:37 → ASU 07:37